=== PATIENT | male | born 1940 | race Caucasian/White ===

== ENCOUNTER → 2016-09-18 | Outpatient (CLI) | payer OTHER, BC ==
--- NOTE | 2016-09-18 14:22 | US ---
Thyroid sonogram. September 18, 2016 HISTORY: Follow up thyroid lobe mass. TECHNIQUE: Sonographic evaluation of the thyroid gland was performed utilizing a high resolution line ar transducer. Comparison studies: Dictated reports from prior outside thyroid sonogram of January 06, 2012, and January 20, 2013. FINDINGS: Within the right thyroid lobe, there is a complex mixed cystic and solid mass identified. This mass m easures 3.6 x 2.8 x 4.2 cm in size and demonstrates solid component peripherally with increased vascu larity. This lesion is indeterminate for benign or malignant etiology. The lesion appears larger in s ize when compared to prior dictated ultrasound reports. Recommend ultrasound-guided fine-needle aspir ation, with targeting of the more peripheral solid component of the lesion. The left thyroid lobe demonstrates diffuse heterogeneity with mild scattered nodularity, with a 5 mm echogenic nodule present in the mid gland. No dominant mass identified. Lymph nodes: There are abnormal-appearing lymph nodes present in the right neck at zone 3, measuring up to 1.5 cm in size, with at least 2 abnormal lymph nodes identified. These lymph nodes are indeterm inate for benign or malignant etiology, and there is loss of fatty hilum within both lymph nodes. IMPRESSION: 1. Large indeterminate mixed cystic and solid mass, mid right thyroid lobe. Recommend ultrasound-guid ed fine-needle aspiration to exclude malignant etiology, targeting the more solid component periphera lly. 2. Heterogeneity within the left thyroid lobe with scattered nodularity. 3. Indeterminate lymphadenopathy in the right neck, zone 3, potentially malignant. A Follow-Up Required message has been communicated to Joseline Osborne MD via the [employer] Critical Result system on 09/18/2016 17:02, Message ID [id number].
== END ==
LOC: BMCIMAGING 09:12
PROVIDERS: ATTEND Internal Medicine Endocrinology, Diabetes & Metabolism
DX: E04.9 Nontoxic goiter, unspecified (principal)
CPT/HCPCS: 76536-PO

== ENCOUNTER → 2016-09-24 | Outpatient (CLI) | payer OTHER, BC ==
[~2016-09-24] MED LIST: LIDOCAINE 1% 30 ML SDV ONE; NA BICARBONATE 50 MEQ/50 ML VIAL ONE
--- NOTE | 2016-09-24 13:06 | US ---
Ultrasound-Guided FNA of the Thyroid History: Right-sided thyroid nodule. Rule out thyroid cancer. Mildly suspicious level 3 lymph node ri ght mid to upper neck. Crosscutting Measure #226 : Current tobacco user no. Technique: Following informed consent, the dominant nodule with cystic component within the right lob e of the thyroid was localized with ultrasound. The skin was then prepped and draped in sterile fashi on. Following local anesthesia with 1% lidocaine, the fluid was aspirated with a 20-gauge needle. Fol lowing this, 25-gauge needle was advanced with ultrasound guidance into the soft tissue component of dominant nodule in the right lobe of the thyroid. Fine-needle aspiration was performed 6 times with t he samples submitted to the cytopathologist. No significant hematoma formation is visualized. The pat ient tolerated the procedure well. The dominant level 3 node along the right mid to upper neck was then localized with ultrasound. Follo wing local anesthesia with 1% lidocaine, a 17-gauge coaxial needle was advanced with ultrasound kimberly nce to the superficial margin of the dominant node. Three 18-gauge core biopsy samples were obtained and submitted to pathology in formalin. Impression: 1. Successful ultrasound-guided fine needle aspiration of dominant nodule right lobe of the thyroid. 2. Successful ultrasound-guided core biopsy of dominant level 3 lymph node right mid to upper neck ut ilizing 18-gauge core biopsy needle.
== END ==
LOC: FIMAGING 09:49
PROVIDERS: ATTEND Internal Medicine Endocrinology, Diabetes & Metabolism
PROC: 0GBH3ZX Excision of Right Thyroid Gland Lobe, Percutaneous Approach, Diagnostic (ICD-10-PCS; principal; 2016-09-24)
DX: E04.1 Nontoxic single thyroid nodule (principal)

== ENCOUNTER → 2017-03-07 | Outpatient (CLI) | payer OTHER, BC | LOC: BHFA 10:00 | PROVIDERS: ATTEND Internal Medicine Interventional Cardiology | DX: I48.91 Unspecified atrial fibrillation (principal); I48.92 Unspecified atrial flutter; I25.10 Atherosclerotic heart disease of native coronary artery without angina pectoris; I10 Essential (primary) hypertension ==

== ENCOUNTER → 2017-10-29 | Outpatient (CLI) | payer OTHER, BC | LOC: CIMAGING 07:59 | PROVIDERS: ATTEND Internal Medicine Endocrinology, Diabetes & Metabolism | DX: E04.1 Nontoxic single thyroid nodule (principal) | CPT/HCPCS: 76536-PO ==

== ENCOUNTER → 2018-03-09 | Outpatient (CLI) | payer OTHER, BC | LOC: BHFA 09:15 | PROVIDERS: ATTEND Internal Medicine Interventional Cardiology | DX: I48.91 Unspecified atrial fibrillation (principal); I48.92 Unspecified atrial flutter; I25.10 Atherosclerotic heart disease of native coronary artery without angina pectoris; I10 Essential (primary) hypertension ==

== ENCOUNTER → 2018-05-22 | Outpatient (CLI) | payer OTHER, BC | LOC: FCPNEURO 20:30 | PROVIDERS: ATTEND Psychiatry & Neurology Sleep Medicine | DX: G47.39 Other sleep apnea (principal) ==